=== PATIENT | male | born 1955 | race African-American/Black ===

== ENCOUNTER 2023-07-19 12:59 | Emergency (ER) | payer MEDICARE, BC ==
[~2023-07-19] VITALS: Ht 180.3 cm; Wt 84.1 kg
[~2023-07-19 12:59] MED LIST: DULCOLAX STOOL100 MG PO; MIRALAX238G PO
[2023-07-19 13:05] VITALS: TEMP 97.4
[2023-07-19] MEDS ORDERED: Ondansetron 4 MG/2 ML VIAL IV ONE (14:30)
[2023-07-19 15:10] LABS: BASO % 0.2 % (0.0-2.0); EOS # 0.1 K/mm3 (0.0-0.7); GRAN # 4.7 K/mm3 (1.4-6.5); GRAN % 76.5 % (42.2-75.2); HEMOGLOBIN 13.6 g/dl (13.5-18.0); LYMPH # 0.8 K/mm3 (1.2-3.4); LYMPH % 13.5 % (20.0-51.0); MEAN CELL VOLUME 83 fl (80.0-100.0); MEAN CORPUSCULAR HEMOGLOBIN 27 pg (27-31); MEAN CORPUSCULAR HGB CONC 33 g/dl (33.0-37.0); MEAN PLATELET VOLUME 10.5 fl (7.4-10.4); MONO # 0.5 K/mm3 (0.1-0.6); MONO % 8.5 % (1.7-9.3); PLATELET COUNT 232 K/mm3 (130-400); RED BLOOD COUNT 4.96 M/mm3 (4.20-5.60)
[2023-07-19 15:25] LABS: ALANINE AMINOTRANSFERASE 6 U/L (0-55); ALKALINE PHOSPHATASE 62 U/L (40-150); ANION GAP 11 mmol/L (7-16); AST,SGOT 10 U/L (5-34); BILIRUBIN,TOTAL 0.5 mg/dL (0.2-1.2); BLOOD UREA NITROGEN 15 mg/dL (8-26); CALCIUM 10.1 mg/dL (8.4-10.2); CARBON DIOXIDE 26 mmol/L (23-31); CHLORIDE 99 mmol/L (98-107); CREATININE, serum 1.24 mg/dL (0.72-1.25); GLUCOSE 129 mg/dL (70-99); LIPASE 40 U/L (8-78); SODIUM 136 mmol/L (136-145); TOTAL PROTEIN 7.5 gm/dL (6.2-8.1)
[2023-07-19 15:37] LABS: COLLECTION METHOD CLEAN CATCH
[2023-07-19 15:44] LABS: TSH w REFLEX 1.044 uIU/mL (0.350-4.940)
[2023-07-19 15:45] LABS: TROPONIN-I < 0.010 ng/mL (0.00-0.033)
[2023-07-19 15:55] LABS: PH 7.5 (5.0-8.5); SQUAMOUS EPITHELIAL None Seen /hpf (0-10); URINE APPEARANCE Hazy (CLEAR/HAZY); URINE BLOOD Negative (NEGATIVE); URINE COLOR Yellow (YELLOW); URINE GLUCOSE Negative (NEGATIVE); URINE KETONE Negative (NEGATIVE); URINE NITRATE Negative (NEGATIVE); URINE PROTEIN(semi-quant) Negative (NEGATIVE); URINE RBC None Seen /hpf (0-2); URINE UROBILINOGEN 0.2 E.U/dL (0.2-1.0)
[2023-07-19 15:57] LABS: URINE BACTERIA Occasional /hpf (NONE SEEN)
[2023-07-19] MEDS ORDERED: ZOFRAN ODT4 MG PO (16:14)
[2023-07-19] MEDS ORDERED: PAXLOVID CO-PA1 EACH PO (16:14)
[2023-07-19 16:39] VITALS: BP 182/83; PULSE 57
== END 2023-07-19 16:39 | disposition home or self-care (01) ==
LOC: COL.ER 12:59
PROVIDERS: Emergency Medicine
DX: U07.1 COVID-19 (principal); R11.2 Nausea with vomiting, unspecified; R33.9 Retention of urine, unspecified; R00.1 Bradycardia, unspecified; G20.A1 Parkinson's disease without dyskinesia, without mention of fluctuations
CPT/HCPCS: J2405

== ENCOUNTER → 2023-09-30 | Outpatient (CLI) | payer MEDICARE ==
[~2023-09-30] MED LIST changes: +Iohexol 300 - 100 ML VIAL IV ONE; +NEURONTIN100 MG/CAP PO; +NS 100 ML IV SCH; +PAXLOVID CO-PA1 EACH PO; +ZOFRAN ODT4 MG PO
== END ==
LOC: COL.RAD 12:31
DX: N28.1 Cyst of kidney, acquired (principal)
CPT/HCPCS: Q9967

== ENCOUNTER 2023-11-03 14:26 | Observation (INO) | payer MEDICARE, BC ==
[~2023-11-03] VITALS: Ht 179.1 cm; Wt 81.0 kg
[~2023-11-03 14:26] MED LIST changes: -Iohexol 300 - 100 ML VIAL IV ONE; -NS 100 ML IV SCH
[2023-11-03 14:59] LABS: BASO % 0.4 % (0.0-2.0); EOS # 0.1 K/mm3 (0.0-0.7); EOS % 1.3 % (0.0-4.0); GRAN # 3.6 K/mm3 (1.4-6.5); HEMATOCRIT 43.8 % (42.0-52.0); HEMOGLOBIN 14.3 g/dl (13.5-18.0); LYMPH # 1.1 K/mm3 (1.2-3.4); LYMPH % 20.9 % (20.0-51.0); MEAN CELL VOLUME 83 fl (80.0-100.0); MEAN CORPUSCULAR HEMOGLOBIN 27 pg (27-31); MEAN CORPUSCULAR HGB CONC 33 g/dl (33.0-37.0); MEAN PLATELET VOLUME 10.2 fl (7.4-10.4); MONO # 0.5 K/mm3 (0.1-0.6); MONO % 9.2 % (1.7-9.3); PLATELET COUNT 257 K/mm3 (130-400); REDCELL DISTRIBUTION WIDTH-CV 15.3 % (11.5-14.5)
[2023-11-03 15:09] LABS: ALBUMIN 4.3 g/dL (3.4-4.8); ALKALINE PHOSPHATASE 65 U/L (40-150); ANION GAP 14 mmol/L (7-16); AST,SGOT 11 U/L (5-34); BILIRUBIN,TOTAL 0.8 mg/dL (0.2-1.2); BLOOD UREA NITROGEN 15 mg/dL (8-26); CALCIUM 9.9 mg/dL (8.4-10.2); CHLORIDE 101 mEq/L (98-107); GLUCOSE 132 mg/dL (70-99); POTASSIUM 4.8 mEq/L (3.5-4.5); SODIUM 138 mEq/L (136-145); TOTAL PROTEIN 7.6 g/dl (6.2-8.1)
[2023-11-03 15:10] LABS: ALANINE AMINOTRANSFERASE < 6 U/L (0-55)
[2023-11-03 15:18] LABS: TROPONIN-I < 0.010 ng/mL (0.00-0.033)
[2023-11-03] MEDS ORDERED: Morphine 4 MG/ML VIAL IV ONE (15:30)
[2023-11-03] MEDS ORDERED: LORazepam 2 MG/ML 1 ML VIAL IV ONE (15:30)
[2023-11-03] MEDS ORDERED: Ondansetron 4 MG/2 ML VIAL IV ONE (15:30)
[2023-11-03] MEDS ORDERED: NS 250 ML IV ONE (15:30)
[2023-11-03] MEDS ORDERED: PRINIVIL40 MG PO (17:11)
[2023-11-03] MEDS ORDERED: SINEMET 25/101 UDTAB PO (17:11)
[2023-11-03] MEDS ORDERED: ELDEPRYL 5MG5 MG/CAP PO ×2 (17:11→21:22)
[2023-11-03] MEDS ORDERED: GLUCOPHAGE1000 MG PO ×2 (17:12→17:35)
[2023-11-03] MEDS ORDERED: ANTIVERT 25MG25 MG PO ×2 (17:12→21:23)
[2023-11-03] MEDS ORDERED: REMERON 15M15 MG/TA1 PO ×2 (17:13→21:24)
[2023-11-03] MEDS ORDERED: SYNTHROID0.05 MG/TA PO (17:16)
[2023-11-03] MEDS ORDERED: hydrALAZINE 25 MG TAB PO PRN (18:00)
[2023-11-03] MEDS ORDERED: metFORMIN 500 MG TAB PO PRN (18:00)
[2023-11-03 18:12] VITALS: BP 204/89; PULSE 68; TEMP 97.8
[2023-11-03] MEDS ORDERED: *Potassium Replacement Protocol MC SCH (18:15)
[2023-11-03] MEDS ORDERED: Morphine 4 MG/ML VIAL IV PRN (18:15)
--- NOTE | 2023-11-03 19:01 | NUR ---
Patient eating right now his dinner. He states his pain is 10/10. PRN provided. HTN, SBP >200 Hydralazine PO given. Report will be given to night RN.
[2023-11-03 19:06] VITALS: BP_SYST 204
[2023-11-03 19:32] VITALS: BP 148/77; PULSE 81; TEMP 98.1
[2023-11-03] MEDS ORDERED: HUMULIN N 10100 U/ML SQ (21:24)
[2023-11-03] MEDS ORDERED: DULCOLAX STOOL100 MG PO (21:25)
--- NOTE | 2023-11-03 21:45 | NUR ---
Patient resting in bed. Rates pain at 7/10, prn pain meds given. Needs met. Assessment complete. IV in right forearm flushes easily with no complications. Call light and personal items in reach. Bed in low position and bed alarm on.
[2023-11-03 23:15] VITALS: BP 150/75; PULSE 79; TEMP 98.2
[2023-11-04] VITALS (14 sets, daily range): BP systolic 93–161; BP diastolic 58–77; PULSE 52–88; TEMP 97.4–98.2
[2023-11-04] MEDS ORDERED: Pantoprazole 40 MG in NS 10 ML IV SCH (02:30)
[2023-11-04] MEDS ORDERED: Ondansetron 4 MG/2 ML VIAL IV PRN ×2 (02:30→09:15)
--- NOTE | 2023-11-04 06:00 | NUR ---
Patient resting in bed. Rates pain 10/10, unable to give pain meds at this time, parkinsons meds given and states they helped. Needs met. No changes over night. Call light and persoanl items in reach. Bed in low position and bed alarm on.
[2023-11-04 07:11] LABS: BASO % 0.3 % (0.0-2.0); EOS # 0.1 K/mm3 (0.0-0.7); EOS % 1.2 % (0.0-4.0); GRAN # 4.2 K/mm3 (1.4-6.5); GRAN % 71.4 % (42.2-75.2); HEMOGLOBIN 13.3 g/dl (13.5-18.0); LYMPH # 1.1 K/mm3 (1.2-3.4); LYMPH % 19.5 % (20.0-51.0); MEAN CELL VOLUME 82 fl (80.0-100.0); MEAN CORPUSCULAR HEMOGLOBIN 27 pg (27-31); MEAN CORPUSCULAR HGB CONC 33 g/dl (33.0-37.0); MEAN PLATELET VOLUME 11.3 fl (7.4-10.4); MONO # 0.4 K/mm3 (0.1-0.6); MONO % 7.3 % (1.7-9.3); PLATELET COUNT 192 K/mm3 (130-400); RED BLOOD COUNT 4.89 M/mm3 (4.20-5.60); REDCELL DISTRIBUTION WIDTH-CV 15.4 % (11.5-14.5)
[2023-11-04 07:13] LABS: ALBUMIN 3.7 g/dL (3.4-4.8); CALCIUM 9.2 mg/dL (8.4-10.2); CREATININE, serum 1.38 mg/dL (0.72-1.25); PHOSPHOROUS 4.7 mg/dL (2.3-4.7); POTASSIUM 4.6 mEq/L (3.5-4.5)
[2023-11-04] MEDS ORDERED: Heparin 5,000 UNITS/ML 1 ML VIAL SQ SCH (08:00)
[2023-11-04] MEDS ORDERED: Lisinopril 20 MG TAB PO SCH (09:00)
[2023-11-04] MEDS ORDERED: Insulin Lispro (HumaLOG) SQ SCH (12:00)
[2023-11-04] MEDS ORDERED: Regadenoson 0.08 MG/ML 5 ML SYRINGE IV SCH (13:52)
[2023-11-04] MEDS ORDERED: NORCO 325 MG-51 TAB PO (15:42)
[2023-11-04] MEDS ORDERED: ATIVAN 0.50.5 MG/TAB PO (15:42)
--- NOTE | 2023-11-04 16:15 | NUR ---
Agriculture Technician met with patient and his , Stacy (ph#[phone]) at bedside to discuss discharge planning. Patient lives in [place] and sees Dr. Power for primary care. Patient also sees Dr. Dorsey for neurology. Patient gets his medications from [facility] and uses a walker akt home for ambulation. Stacy advised she assists patient with ADLS. Patient does not think he has DPOA-HC. SW discussed PT recommendation for HH and both patient and Stacy are agreeable to this. SW provided Medicare.gov list of HH agencies that serve [place]. Stacy advised patient has a very important appointment in [place] tomorrow, which DEE passed along to Hospitalist. Discharge Plan: Home with HH
--- NOTE | 2023-11-04 18:06 | NUR ---
Shift assessment complete this morning. Patient alert and oriented x4 at time of assessment and throughout shift. Complains of baseline pain to hips, PRN morphine administered. This morning patient stated chest pressure felt stable, but by 1100 patient complained of increased chest pressure. Parkinson tremors noted to increase, patient also noted to be anxious. Sinemet administered, Chloe SHAW notified. Orders obtained for EKG. Patient left unit for lexiscan at approx 1315 and returned alert and oriented x4. States he was nauseous and wanted to vomit, PRN Zofran administered. Patient resting in bed with call light in reach, at bedside.
--- NOTE | 2023-11-04 18:17 | NUR ---
Discharge instructions discussed with patient including follow-up appointments, new medications, education packets, and pain management. Patient and verbalized understanding. IV discontinued to right forearm with no complications. Telemetry off. PRN [place] administered due to patient complaining of pain returning. Patient reminded to not take any more until 8hr later per orders. Patient escorted to ER entrance via wheelchair.
--- NOTE | 2023-11-05 13:44 | NUR ---
Patient was discharged yesterday so Can Patcher contacted patient's , Stacy to follow up on Home Health. Stacy selected [facility] so DEE contacted Duy at [facility] and faxed referral with discharge orders. [facility]
== END 2023-11-04 18:00 | disposition home health service (06) ==
LOC: COL.ER 14:26 → MEDICAL 16:51
PROVIDERS: Personal Emergency Response Attendant; ADMIT Internal Medicine
DX: R07.9 Chest pain, unspecified (principal); I16.0 Hypertensive urgency; T46.4X6A Underdosing of angiotensin-converting-enzyme inhibitors, initial encounter; Z91.128 Patient's intentional underdosing of medication regimen for other reason; Y92.9 Unspecified place or not applicable; G20.A1 Parkinson's disease without dyskinesia, without mention of fluctuations; I10 Essential (primary) hypertension; K21.9 Gastro-esophageal reflux disease without esophagitis; E03.9 Hypothyroidism, unspecified; E11.9 Type 2 diabetes mellitus without complications; Z79.4 Long term (current) use of insulin; Z79.84 Long term (current) use of oral hypoglycemic drugs; Z79.890 Hormone replacement therapy; Z79.899 Other long term (current) drug therapy
CPT/HCPCS: A9500-JZ; C9113; G0378; J1644; J1920; J2060; J2270; J2405; J2785; J7050

== ENCOUNTER 2023-11-18 16:20 | Emergency (ER) | payer MEDICARE, BC ==
[~2023-11-18] VITALS: Ht 180.3 cm; Wt 75.0 kg
[~2023-11-18 16:20] MED LIST changes: +ANTIVERT 25MG25 MG PO; +ATIVAN 0.50.5 MG/TAB PO; +ELDEPRYL 5MG5 MG/CAP PO; +GLUCOPHAGE1000 MG PO; +HUMULIN N 10100 U/ML SQ; +NORCO 325 MG-51 TAB PO; +PRINIVIL40 MG PO; +REMERON 15M15 MG/TA1 PO; +SINEMET 25/101 UDTAB PO; +SYNTHROID0.05 MG/TA PO
[2023-11-18] MEDS ORDERED: OLANZapine 5 MG Orally-Disinteg TAB PO ONE (17:30)
[2023-11-18 18:17] LABS: BASO % 0.4 % (0.0-2.0); EOS # 0.1 K/mm3 (0.0-0.7); EOS % 1.6 % (0.0-4.0); GRAN # 3.3 K/mm3 (1.4-6.5); GRAN % 64.1 % (42.2-75.2); HEMATOCRIT 39.8 % (42.0-52.0); LYMPH # 1.4 K/mm3 (1.2-3.4); LYMPH % 26.6 % (20.0-51.0); MEAN CELL VOLUME 82 fl (80.0-100.0); MEAN CORPUSCULAR HEMOGLOBIN 27 pg (27-31); MEAN CORPUSCULAR HGB CONC 33 g/dl (33.0-37.0); MEAN PLATELET VOLUME 10.5 fl (7.4-10.4); MONO # 0.4 K/mm3 (0.1-0.6); MONO % 7.1 % (1.7-9.3); PLATELET COUNT 244 K/mm3 (130-400); RED BLOOD COUNT 4.83 M/mm3 (4.20-5.60); REDCELL DISTRIBUTION WIDTH-CV 15.3 % (11.5-14.5)
[2023-11-18 18:39] LABS: ALBUMIN 4.1 g/dL (3.4-4.8); ALKALINE PHOSPHATASE 64 U/L (40-150); ANION GAP 9 mmol/L (7-16); AST,SGOT 11 U/L (5-34); BILIRUBIN,TOTAL 0.5 mg/dL (0.2-1.2); BLOOD UREA NITROGEN 21 mg/dL (8-26); CALCIUM 9.7 mg/dL (8.4-10.2); CHLORIDE 103 mEq/L (98-107); CREATININE, serum 1.08 mg/dL (0.72-1.25); GLUCOSE 204 mg/dL (70-99); POTASSIUM 4.4 mEq/L (3.5-4.5); SODIUM 137 mEq/L (136-145); TOTAL PROTEIN 7.3 g/dl (6.2-8.1)
[2023-11-18 18:51] LABS: ALANINE AMINOTRANSFERASE < 6 U/L (0-55)
[2023-11-18 20:13] VITALS: BP 105/54; PULSE 98; TEMP 97.5
== END 2023-11-18 20:13 | disposition home or self-care (01) ==
LOC: COL.ER 16:20
PROVIDERS: Personal Emergency Response Attendant
DX: F22 Delusional disorders (principal)

== ENCOUNTER 2023-12-30 11:35 | Emergency (ER) | payer MEDICARE, BC ==
[~2023-12-30] VITALS: Ht 180.3 cm; Wt 75.0 kg
[2023-12-30 11:45] VITALS: TEMP 98.7
[2023-12-30 12:35] LABS: COLLECTION METHOD CLEAN CATCH
[2023-12-30 12:47] LABS: PH 5.5 (5.0-8.5); URINE APPEARANCE CLEAR (CLEAR/HAZY); URINE BLOOD NEGATIVE (NEGATIVE); URINE COLOR YELLOW (YELLOW); URINE GLUCOSE NEGATIVE (NEGATIVE); URINE KETONE 1+ (NEGATIVE); URINE NITRATE NEGATIVE (NEGATIVE); URINE PROTEIN(semi-quant) NEGATIVE (NEGATIVE); URINE UROBILINOGEN 0.2 E.U/dL (0.2-1.0)
[2023-12-30 13:29] LABS: BASO % 0.4 % (0.0-2.0); EOS % 0.2 % (0.0-4.0); GRAN # 4.4 K/mm3 (1.4-6.5); GRAN % 85.4 % (42.2-75.2); HEMATOCRIT 37.9 % (42.0-52.0); HEMOGLOBIN 12.1 g/dl (13.5-18.0); LYMPH # 0.4 K/mm3 (1.2-3.4); MEAN CELL VOLUME 84 fl (80.0-100.0); MEAN CORPUSCULAR HEMOGLOBIN 27 pg (27-31); MEAN CORPUSCULAR HGB CONC 32 g/dl (33.0-37.0); MEAN PLATELET VOLUME 10.5 fl (7.4-10.4); MONO # 0.3 K/mm3 (0.1-0.6); MONO % 5.8 % (1.7-9.3); PLATELET COUNT 184 K/mm3 (130-400); RED BLOOD COUNT 4.54 M/mm3 (4.20-5.60); REDCELL DISTRIBUTION WIDTH-CV 15.9 % (11.5-14.5)
[2023-12-30 13:50] LABS: ALBUMIN 4.1 g/dL (3.4-4.8); ALKALINE PHOSPHATASE 85 U/L (40-150); ANION GAP 14 mmol/L (7-16); AST,SGOT 8 U/L (5-34); BILIRUBIN,TOTAL 0.7 mg/dL (0.2-1.2); BLOOD UREA NITROGEN 20 mg/dL (8-26); CALCIUM 10.5 mg/dL (8.4-10.2); CHLORIDE 103 mEq/L (98-107); GLUCOSE 109 mg/dL (70-99); POTASSIUM 4.1 mEq/L (3.5-4.5); SODIUM 141 mEq/L (136-145); TOTAL PROTEIN 7.1 g/dl (6.2-8.1)
[2023-12-30 13:52] LABS: ALANINE AMINOTRANSFERASE < 6 U/L (0-55)
[2023-12-30 15:45] VITALS: BP 169/96; PULSE 18
== END 2023-12-30 15:45 | disposition home or self-care (01) ==
LOC: COL.ER 11:35
PROVIDERS: Nurse Practitioner Primary Care
DX: K59.00 Constipation, unspecified (principal); R33.9 Retention of urine, unspecified; Z87.891 Personal history of nicotine dependence

== ENCOUNTER 2024-01-06 14:36 | Emergency (ER) | payer MEDICARE, BC ==
[~2024-01-06] VITALS: Ht 180.3 cm; Wt 75.0 kg
[2024-01-06 14:44] VITALS: TEMP 98.3
[2024-01-06] MEDS ORDERED: NS 1,000 ML IV ONE (16:15)
[2024-01-06] MEDS ORDERED: SEROQUEL 2525 MG/TAB PO ×2 (16:28→16:36)
[2024-01-06 16:43] VITALS: BP 126/84; PULSE 64
== END 2024-01-06 16:43 | disposition home or self-care (01) ==
LOC: COL.ER 14:36
DX: R44.3 Hallucinations, unspecified (principal); G20.A1 Parkinson's disease without dyskinesia, without mention of fluctuations